=== PATIENT | male | born 1980 | race Caucasian/White ===

== ENCOUNTER 2017-05-29 14:23 | Emergency (ER) | payer OTHER ==
[~2017-05-29] VITALS: Ht 180.3 cm; Wt 92.5 kg
[2017-05-29 14:35] VITALS: TEMP 37.5; Ht 180.3 cm; Wt 92.5 kg
[2017-05-29] MEDS ORDERED: DIPHTHERIA/TETANUS/PERTUSSIS 0.5 ML SYR/VIAL IM. ONE (15:15)
[2017-05-29] MEDS ORDERED: IBUP-103 PO (15:37)
--- NOTE | 2017-05-29 15:42 | DIAGNOSTIC IMAGING REPORT ---
LEFT KNEE 3 VIEWS CLINICAL HISTORY: Left knee pain. COMPARISON: None FINDINGS: Alignment of the left knee is anatomic. There is no acute fracture. A small left knee joint effusion is present. IMPRESSION: 1. No acute fracture. 2. Small left knee joint effusion. Electronically signed by: Sanket Alegria M.D. 05/29/2017 3:41 PM Dictated Date/Time: 05/29/2017 3:40 PM
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
[2017-05-29 16:00] LABS: BASO % 0.2 %; BASO ABS # 0.02 K/uL (0-0.2); COMPLETE YES; EOS % 0.4 %; HEMATOCRIT 44.6 % (42-52); IG% 0.2 %; MEAN CELL VOLUME 102.3 fL (80-100); MEAN CORPUSCULAR HGB CONC 32.3 g/dl (32-36); MEAN PLATELET VOLUME 9.2 fL (7.4-10.4); MONO % 8.4 %; NEUT % 68.8 %; PLATELET COUNT 303 K/uL (130-400); RED BLOOD COUNT 4.36 M/uL (4.7-6.1); WHITE BLOOD COUNT 12.29 K/uL (4.8-10.8)
[2017-05-29] MEDS ORDERED: AMOX875T PO (16:06)
[2017-05-29 16:28] LABS: BUN/CREATININE RATIO 11.8 (10-20); CALCIUM 8.6 mg/dl (8.5-10.1); CREATININE 1.1 mg/dl (0.60-1.40); POTASSIUM 3.8 mmol/L (3.5-5.1)
[2017-05-29 16:31] LABS: ALB/GLOB RATIO 1.2 (0.9-2)
[2017-05-29 16:39] LABS: HEPATITIS B AB POS
[2017-05-29 16:40] VITALS: BP 133/73; PULSE 61; O2SAT 98
== END 2017-05-29 16:41 | disposition home or self-care (01) ==
LOC: C.EDB 14:24 → C.EDD 16:41
DX: S50.871A Other superficial bite of right forearm, initial encounter (principal); W50.3XXA Accidental bite by another person, initial encounter; S09.90XA Unspecified injury of head, initial encounter; L02.415 Cutaneous abscess of right lower limb; M25.562 Pain in left knee; Z23 Encounter for immunization; Z88.8 Allergy status to other drugs, medicaments and biological substances